=== PATIENT | female | born 1960 | race Caucasian/White ===

== ENCOUNTER → 2018-12-16 11:16 | Outpatient (CLI) | payer BC | END | disposition home or self-care (01) | LOC: D.MRI 11:16 | PROVIDERS: ATTEND Orthopaedic Surgery | DX: M54.16 Radiculopathy, lumbar region (principal) ==

== ENCOUNTER 2019-03-06 06:40 | Day surgery (SDC) | payer BC ==
[2019-03-04 13:24] LABS: HEMATOCRIT 37.7 % (36.0-48.0); MCH 30.9 pg (26.0-34.0); MCHC 34.5 g/dL (31.0-37.0); MCV 89.5 fL (80.0-100.0); MEAN PLATELET VOLUME 11.5 fL (7.4-10.4); RBC 4.21 10x6/uL (4.00-5.40); RDW 13.4 % (11.5-14.5); WBC 6.6 10x3/uL (4.8-10.8)
[2019-03-04 13:44] LABS: CALC OSMOLALITY 279 mosm/kg (275-300); CALCIUM 9.8 mg/dL (8.5-10.1); CARBON DIOXIDE 25.3 mmol/L (21.0-32.0); CHLORIDE - SERUM 104 mmol/L (98-107); CREATININE - SERUM 0.6 mg/dL (0.6-1.3); GLUCOSE 95 mg/dL (74-106); POTASSIUM - SERUM 4.2 mmol/L (3.5-5.1); SODIUM 140 mmol/L (136-145); UREA NITROGEN 14 mg/dL (7-18); eGFR NON AFRICAN AMERICAN > 90 mL/min (90-120)
[~2019-03-06] VITALS: Ht 172.7 cm; Wt 77.1 kg
[~2019-03-06 06:40] MED LIST: ACETAMINOPHEN500 M1 PO; COLESTID1 GM PO; LISINOPRIL-HCT1 EAC4 PO; PEPCID AC20 MG PO; PRAVASTATIN SOD10 MG PO
[2019-03-06 08:31] VITALS: BMI 25.9
[2019-03-06] MEDS ORDERED: HYDROCODON-ACE1 EA10 PO (10:36)
--- NOTE | 2019-03-06 16:59 | NUR ---
REPORT CALLED TO [facility] LPN MED/SURG. PATIENT TRANSFERRED BY WHEELCHAIR TO ROOM 2230 IN STABLE CONDITION, PATIENT PLEASANT, AGREEABLE, WITHOUT COMPLAINTS
--- NOTE | 2019-03-06 17:30 | NUR ---
RECEIVED TO ROOM 2230 VIA FROM OUTPATIENTS. A/O X3. NO C/O AT THIS TIME. SKIN IS INTACT WITHOUT REDNESS EXCEPT SMALL INCISION MID LOWER BACK WHICH HAS A DRY INTACT DRESSING IN PLACE. AMBULATED TO WITH SBA. VOIDED WITHOUT DIFFICUTLY.
[2019-03-06 18:06] VITALS: BP 94/54; BMI 25.9
--- NOTE | 2019-03-06 18:45 | NUR ---
RESTING QUIETLY IN BED. DENIES NEEDS. NO CHANGES NOTED.
[2019-03-06 21:43] VITALS: BP 100/48
[2019-03-07 01:28] VITALS: BP 110/53
--- NOTE | 2019-03-07 02:55 | NUR ---
PT RESTING IN BED. EYES CLOSED. NO SIGNS OF DISTRESS. BREATHING EVEN AND UNLABORED. IV SITE RT HAND DRESSING CLEAN DRY AND INTACT. NO SIGNS OF INFECTION. BOWEL SOUNDS ACTIVE. SKIN CLEAN DRY AND INTACT. WILL CONTINUE PLAN OF CARE. CALL LIGHT IN REACH. BED LOWERED AND LOCKED. BED RAILS UP X2.
--- NOTE | 2019-03-07 03:00 | NUR ---
I have reviewed this patient and I concur with the Shift Assessment completed by the Licensed Practical Nurse today this shift.
[2019-03-07 04:59] VITALS: BP 116/49
--- NOTE | 2019-03-07 07:25 | NUR ---
REQUESTED AND GIVNE ONE HYDROCODONE PO FOR C/O BACK PAIN LEVEL 7. WILL MONITOR.
--- NOTE | 2019-03-07 07:35 | NUR ---
AWAKE AND ALERT. ORIENTED X3. SITTING UP IN BED EATING HILL HER BROUGHT HER. LUNGS ARE CLEAR BILATERALLY, NO COUGH NOTED. SKIN IS INTACT WITHOUT REDNESS EXCPET SMALL INCISION TO MID LOWER BACK WHICH HAS A CLEAN DRY DRESSING IN PLACE. SL TO RIGHT HAND PATETN WTIHOUT REDNESS AT INSERTION SITE. DENIES NEEDS.
[2019-03-07 09:01] VITALS: BP 100/67
--- NOTE | 2019-03-07 10:14 | NUR ---
RESTING QUIETLY IN BED. DENIES NEEDS.
[2019-03-07 12:10] VITALS: Ht 172.7 cm; Wt 77.1 kg
--- NOTE | 2019-03-07 12:15 | NUR ---
REQUESTED AND GIVNE ONE HYDROCODONE PO FOR C/O BACK PAIN LEVEL 7. WILL MONITOR.
[2019-03-07 13:26] VITALS: BP 98/71
--- NOTE | 2019-03-07 16:25 | NUR ---
DISCHARGED TO HOME AMBULATORY WITH FAMILY. DISCHARGE INSTRUCTIONS GIVEN BOTH VERBALLY AND WRITTEN. ALL QUESTIONS ANSWERED. PATIENT VERBALIZED UNDERSTANDING OF SAME. NEEDED PRESCRIPTIONS GIVEN TO PATIENT. SL TO RIGHT HAND D/C WITH CATHETER INTACT. ALL BELONGINGS WITH PATIENT.
--- NOTE | 2019-03-08 09:56 | OP ---
PATIENT NAME: STEPHANIE LENTZ MEDICAL RECORD: [id number] LOCATION:[id number] ADMISSION DATE:03/06/19 SURGEON: BUCK ALVAREZ MD DATE OF OPERATION: 03/06/2019 PREOPERATIVE DIAGNOSES: Right L5 radiculopathy secondary to lumbar spinal stenosis and foraminal stenosis, L4-L5, right. POSTOPERATIVE DIAGNOSES: Right L5 radiculopathy secondary to lumbar spinal stenosis and foraminal stenosis, L4-L5, right. PROCEDURES: Lumbar laminotomy, medial facetectomy, and foraminotomy L4-L5, right. SURGEON: Buck Alvarez MD DESCRIPTION AND TECHNIQUE: After induction of general endotracheal anesthesia, the patient was rolled prone on a Deandre frame. Lumbar spine was prepped and draped in usual sterile fashion. Fluoroscopic x-ray and spinal needle localized the L4-L5 interspace on the right side. A stab incision was created with a #11 blade and series of dilators were used to advance a METRx retractor to the L4-L5 interspace on the right side. Level was confirmed with fluoroscopic x-ray. A microscope and Midas Vivek drill were used to perform laminotomy, medial facetectomy and foraminotomy at L4-L5 on the right. Hypertrophied ligamentum flavum was removed with Cloward rongeurs. The previous scar tissue was removed as well with Cloward rongeurs. Following this, the L5 nerve root was decompressed well. It was followed around the L5 pedicle until it is completely decompressed. Meticulous hemostasis was maintained throughout the wound. The wound was irrigated with copious amounts of Ancef irrigant solution. The fascia was closed with 2-0 Vicryl suture, the subdermal layer was closed with 3-0 Vicryl suture, skin was closed with fernie. A sterile dressing was applied to the wound. The patient was awakened in good condition and taken to recovery. All counts were reported as correct. Estimated blood loss was minimal. TRANSINT:[id number] Voice Confirmation ID: [id number] DOCUMENT ID: [id number] BUCK ALVAREZ MD at 0956 CC: [id number] DICTATION DATE: 03/06/19 1041 SUPERVISOR PHOSPHORUS PROCESSING: 03/06/19 1053 DIS IN 03/07/[address] [place] [address]
== END 2019-03-07 16:28 | disposition home or self-care (01) ==
LOC: OBSVTIME → D.OPS 06:40 → D.PAN 07:30 → D.OPS 07:30 → D.MS 16:58 → D.OPS 17:11 → OBSVTIME 17:12 → D.MS 17:12 → D.OPS 03-07 16:28
PROVIDERS: Anesthesiology; ATTEND Neurological Surgery
DX: M48.061 Spinal stenosis, lumbar region without neurogenic claudication (principal); M54.16 Radiculopathy, lumbar region; Z01.812 Encounter for preprocedural laboratory examination